=== PATIENT | male | born 1955 | race African-American/Black ===

== ENCOUNTER 2017-06-22 22:22 | Inpatient (IN) ==
[2017-06-22 23:41] LABS: ABG Base Excess -15.7 MMOL/L (-2.5-2.5); ABG HCO3 18.7 MMOL/L (20-26); ABG Oxygen Saturation 98.1 % (95-100); ABG PO2 191.7 MM HG (80-95); ABG TCO2 21.5 MMOL/L (23-27)
[2017-06-22] MEDS ORDERED: PROPOFOL 1,000 MG/100 ML BOTTLE IV ONE (23:42)
[2017-06-22 23:43] LABS: ABG PCO2 90.6 MM HG (35-48); ABG PH 6.932 (7.35-7.45)
[2017-06-22] MEDS ORDERED: ONDANSETRON 4 MG/2 ML VIAL IV STA (23:49)
[2017-06-22] MEDS ORDERED: ASPIRIN 325 MG TABLET PO STA (23:49)
[2017-06-22] MEDS ORDERED: PANTOPRAZOLE 40 MG VIAL IV STA (23:49)
[2017-06-23 00:18] LABS: PT Patient Result 10.7 SECS
[2017-06-23] MEDS ORDERED: VECURONIUM 10 MG VIAL IV ONE (00:26)
[2017-06-23 00:30] LABS: Lactic Acid 14.1 MMOL/L (0.4-2.0)
[2017-06-23 00:35] LABS: Ammonia 102 UMOL/L (11-32)
[2017-06-23 00:46] LABS: Basophils # 0.1 10*3/uL (0.0-0.2); Basophils % 0.3 % (0.0-0.8); Eosinophils # 0.1 10*3/uL (0.0-0.87); Eosinophils % 0.6 % (0.00-10.9); Hematocrit 49.2 VOL% (42.0-52.0); Hemoglobin 15.2 GM/DL (14.0-18.0); Immature Granulocytes % 0.8 %; Immature Granulocytes Absolute 0.12 #; Lymphocytes # 8.4 10*3/uL (1.4-4.0); Lymphocytes % 53.2 % (21.2-54.2); Mean Corpuscular HGB Conc 30.9 GM/DL (32-36); Mean Corpuscular Hemoglobin 32 PG (27-34); Mean Corpuscular Volume 103.1 FL (87-102); Mean Platelet Volume 10.7 FL (9.6-12.0); Monocytes # 0.9 10*3/uL (0.11-0.8); Monocytes % 5.6 % (1.7-12.7); Neutrophils # 6.3 10*3/uL (1.4-7.4); Neutrophils % 39.5 % (38.7-73.9); Platelet Count 258 T/CUMM (130-400); Red Blood Count 4.77 MC/CUMM (3.8-5.5); Red Cell Distribution Width 12.3 % (9.3-17.3); White Blood Count 15.8 T/CUMM (4-12)
[2017-06-23 00:52] LABS: Alanine Aminotransferase 64 U/L (16-61); Albumin 2.6 G/DL (3.4-5.0); Alkaline Phosphatase 64 U/L (45-117); Aspartate Amino Transferase 85 U/L (0-37); Bilirubin,Total < 0.39 MG/DL (0.2-1.0); Blood Urea Nitrogen 11 MG/DL (7-18); Glucose 303 MG/DL (74-106); Osmolality,Calculated 282.8 MOS/KG (273-304); Potassium 3.9 MMOL/L (3.5-5.1); Sodium 137 MMOL/L (136-145); Total Protein 6.4 G/DL (6.4-8.3)
[2017-06-23] MEDS ORDERED: ONDANSETRON 4 MG/2 ML VIAL ONE (01:03)
[2017-06-23] MEDS ORDERED: PANTOPRAZOLE 40 MG VIAL IV ONE (01:03)
[2017-06-23] MEDS: PROPOFOL 1,000 MG/100 ML BOTTLE IV SCH ×2 (03:00→18:13)
[2017-06-23 03:14] LABS: Burr Cells 2+; Giant Platelets Few; Platelet Estimate Normal
[2017-06-23] MEDS ORDERED: fentaNYL 100 MCG/2 ML VIAL IV PRN (03:29)
[2017-06-23] MEDS ORDERED: ALBUTEROL/IPRATROPIUM 3 ML NEB RESP TX PRN (03:29)
[2017-06-23] MEDS ORDERED: ONDANSETRON 4 MG/2 ML VIAL IV PRN (03:29)
[2017-06-23] MEDS: SODIUM CHLORIDE 0.9% 1,000 ML IV SCH ×3 (03:45→20:35)
[2017-06-23 03:47] LABS: ABG Base Excess -7.6 MMOL/L (-2.5-2.5); ABG HCO3 18.4 MMOL/L (20-26); ABG Oxygen Saturation 95.6 % (95-100); ABG TCO2 23.8 MMOL/L (23-27)
[2017-06-23 03:51] LABS: ABG PCO2 86.1 MM HG (35-48); ABG PH 7.108 (7.35-7.45)
[2017-06-23 04:13] LABS: Apearance,Urine CLOUDY (Clear); Bilirubin,Urine Negative (Negative); Blood, Urine Moderate mg/dL (Negative); Glucose,Urine (UA) 150 mg/dL (Negative); Ketones,Urine Negative (Negative); Nitrite,Urine Negative (Negative); Protein,Urine 100 MG/DL; RBC,Urine 23 /HPF (0-4); Sperm,Urine Moderate /HPF (Negative); Squamous Epithelial Cell,Urine Occasional /HPF (0-10); Urine Color Amber (Yellow); Urine Specific Gravity 1.013 (1.001-1.035); WBC,Urine 4 /HPF (0-6)
[2017-06-23 04:48] LABS: Albumin 2.3 G/DL (3.4-5.0); Bilirubin,Total 0.5 MG/DL (0.2-1.0); Calcium 6.9 MG/DL (8.5-10.1); Potassium 4.5 MMOL/L (3.5-5.1); Total Protein 5.7 G/DL (6.4-8.3)
[2017-06-23 05:27] LABS: Barbiturates Screen,Urine Negative (Negative); Benzodiazepines Screen,Urine Negative (Negative); Cannabinoid Screen,Urine Negative (Negative); Opiate Screen,Urine Negative (Negative); Phencyclidine Screen,Urine Negative (Negative)
[2017-06-23 05:45] LABS: ABG Base Excess -3.9 MMOL/L (-2.5-2.5); ABG HCO3 25.7 MMOL/L (20-26); ABG Oxygen Saturation 98.9 % (95-100); ABG PCO2 63.6 MM HG (35-48); ABG PH 7.224 (7.35-7.45); ABG PO2 196.8 MM HG (80-95); ABG TCO2 27.6 MMOL/L (23-27)
[2017-06-23] MEDS: PHENYLEPHRINE DRIP 40 MG/250 ML PREMIX IV SCH ×3 (06:08→19:23)
[2017-06-23 06:22] LABS: Risk Ratio 7.85; VLDL CHOLESTEROL 52.2 MG/DL
[2017-06-23] MEDS: ALBUTEROL/IPRATROPIUM 3 ML NEB RESP TX SCH ×3 (07:18→19:07)
[2017-06-23 08:01] LABS: Basophils % 0.3 % (0.0-0.8); Hematocrit 52.7 VOL% (42.0-52.0); Hemoglobin 17.7 GM/DL (14.0-18.0); Immature Granulocytes % 0.4 %; Immature Granulocytes Absolute 0.04 #; Lymphocytes # 0.9 10*3/uL (1.4-4.0); Lymphocytes % 7.6 % (21.2-54.2); Mean Corpuscular HGB Conc 33.6 GM/DL (32-36); Mean Corpuscular Hemoglobin 32 PG (27-34); Mean Platelet Volume 9.7 FL (9.6-12.0); Monocytes # 0.8 10*3/uL (0.11-0.8); Monocytes % 6.7 % (1.7-12.7); Neutrophils # 9.6 10*3/uL (1.4-7.4); Platelet Count 286 T/CUMM (130-400); Red Blood Count 5.49 MC/CUMM (3.8-5.5); Red Cell Distribution Width 12.7 % (9.3-17.3); White Blood Count 11.3 T/CUMM (4-12)
[2017-06-23] MEDS ORDERED: NOREPINEPHRINE 4 MG/4 ML VIAL IV ONE (08:11)
[2017-06-23 08:40] LABS: Albumin 2.5 G/DL (3.4-5.0); Bilirubin,Total 0.5 MG/DL (0.2-1.0); Osmolality,Calculated 276.8 MOS/KG (273-304); Total Protein 6.4 G/DL (6.4-8.3)
[2017-06-23 08:56] LABS: Potassium 6.5 MMOL/L (3.5-5.1)
[2017-06-23] MEDS: NOREPINEPHRINE 8 MG in SODIUM CHLORIDE 0.9% 234 ML IV SCH (09:00)
[2017-06-23] MEDS: THIAMINE 200 MG/2 ML VIAL IV SCH (09:00)
[2017-06-23 09:03] LABS: CKMB % 3.1 %
[2017-06-23] MEDS: PANTOPRAZOLE 40 MG VIAL IV SCH ×2 (09:05→21:28)
[2017-06-23 09:07] LABS: Troponin I Only 5.51 NG/ML (0.00-0.045)
[2017-06-23] MEDS: FOLIC ACID INJ 1 MG in SYRINGE 1 EACH IV SCH (09:18)
[2017-06-23] MEDS: MULTIVITAMIN LIQUID (CENTRUM) 60 ML BOTTLE PO SCH (09:19)
[2017-06-23] MEDS: CIPROFLOXACIN INJ 400 MG in PREMIX 1 EACH IV SCH ×3 (09:19→23:58)
[2017-06-23 10:13] LABS: ABG Base Excess -6.9 MMOL/L (-2.5-2.5); ABG Oxygen Saturation 99.6 % (95-100); ABG PCO2 42.1 MM HG (35-48); ABG PH 7.283 (7.35-7.45); ABG TCO2 16.6 MMOL/L (23-27)
[2017-06-23] MEDS ORDERED: METOPROLOL TARTRATE 5 MG/5 ML VIAL IV PRN (17:51)
[2017-06-23] MEDS ORDERED: AMIODARONE INJ 150 MG in DEXTROSE 5% 100 ML IV ONE (19:15)
[2017-06-23] MEDS ORDERED: AMIODARONE 150 MG/3 ML VIAL ONE ×2 (19:16→19:27)
[2017-06-23] MEDS ORDERED: AMIODARONE INJ 450 MG in DEXTROSE 5% 241 ML IV SCH (19:30)
[2017-06-23] MEDS ORDERED: VALPROIC ACID INJ 1,000 MG in SODIUM CHLORIDE 0.9% 100 ML IV ONE (19:43)
[2017-06-23] MEDS ORDERED: LORazepam 2 MG/1 ML VIAL IV PRN (19:45)
[2017-06-23] MEDS ORDERED: LORazepam 2 MG/1 ML VIAL ONE ×2 (19:46→19:48)
[2017-06-23] MEDS ORDERED: CALCIUM GLUCONATE 1,000 MG in SODIUM CHLORIDE 0.9% 100 ML IV ONE (20:11)
[2017-06-23] MEDS ORDERED: BUMETANIDE 1 MG/4 ML VIAL IV ONE (20:11)
[2017-06-23 20:19] LABS: Basophils # 0.1 10*3/uL (0.0-0.2); Basophils % 0.3 % (0.0-0.8); Hematocrit 48.5 VOL% (42.0-52.0); Hemoglobin 15.8 GM/DL (14.0-18.0); Immature Granulocytes % 0.5 %; Lymphocytes # 3.1 10*3/uL (1.4-4.0); Lymphocytes % 14.8 % (21.2-54.2); Mean Corpuscular HGB Conc 32.6 GM/DL (32-36); Mean Corpuscular Hemoglobin 31 PG (27-34); Mean Corpuscular Volume 96.4 FL (87-102); Mean Platelet Volume 9.7 FL (9.6-12.0); Monocytes # 1.7 10*3/uL (0.11-0.8); Monocytes % 7.9 % (1.7-12.7); Neutrophils # 16.2 10*3/uL (1.4-7.4); Neutrophils % 76.5 % (38.7-73.9); Platelet Count 260 T/CUMM (130-400); Red Blood Count 5.03 MC/CUMM (3.8-5.5); Red Cell Distribution Width 12.9 % (9.3-17.3); White Blood Count 21.2 T/CUMM (4-12)
[2017-06-23 21:02] LABS: Calcium 7.8 MG/DL (8.5-10.1); Osmolality,Calculated 292.1 MOS/KG (273-304)
[2017-06-23 21:05] LABS: Troponin I Only 7.39 NG/ML (0.00-0.045)
[2017-06-23 21:21] LABS: Band Neutrophils 14 % (0-10); Lymphocytes 7 % (20-55); Platelet Estimate Adequate; Polychromasia Slight; Segmented Neutrophils 67 % (50-85); Total Cells Counted 100
[2017-06-24] MEDS: ALBUTEROL/IPRATROPIUM 3 ML NEB RESP TX SCH ×4 (00:36→19:43)
[2017-06-24] MEDS: AMIODARONE INJ 450 MG in DEXTROSE 5% 241 ML IV SCH ×2 (03:13→18:36)
[2017-06-24 03:17] LABS: Basophils % 0.1 % (0.0-0.8); Hematocrit 46.6 VOL% (42.0-52.0); Hemoglobin 15.7 GM/DL (14.0-18.0); Immature Granulocytes % 0.4 %; Immature Granulocytes Absolute 0.06 #; Lymphocytes # 1.5 10*3/uL (1.4-4.0); Lymphocytes % 10.6 % (21.2-54.2); Mean Corpuscular HGB Conc 33.7 GM/DL (32-36); Mean Corpuscular Hemoglobin 32 PG (27-34); Mean Corpuscular Volume 93.8 FL (87-102); Mean Platelet Volume 9.6 FL (9.6-12.0); Neutrophils # 11.9 10*3/uL (1.4-7.4); Neutrophils % 81.9 % (38.7-73.9); Platelet Count 236 T/CUMM (130-400); Red Blood Count 4.97 MC/CUMM (3.8-5.5); White Blood Count 14.5 T/CUMM (4-12)
[2017-06-24 03:43] LABS: Ammonia < 10 UMOL/L (11-32)
[2017-06-24 03:46] LABS: Alanine Aminotransferase 75 U/L (16-61); Albumin 2.2 G/DL (3.4-5.0); Alkaline Phosphatase 66 U/L (45-117); Aspartate Amino Transferase 181 U/L (0-37); Blood Urea Nitrogen 32 MG/DL (7-18); Calcium 7.9 MG/DL (8.5-10.1); Glucose 156 MG/DL (74-106); Osmolality,Calculated 292.1 MOS/KG (273-304); Sodium 142 MMOL/L (136-145); Total Protein 5.7 G/DL (6.4-8.3)
[2017-06-24 03:50] LABS: Allen Test Positive; Pt O2 Delivery Device Ventilator
[2017-06-24 03:51] LABS: ABG HCO3 24.4 MMOL/L (20-26); ABG Oxygen Saturation 99.4 % (95-100); ABG PCO2 29.2 MM HG (35-48); ABG PH 7.485 (7.35-7.45); ABG TCO2 18.3 MMOL/L (23-27)
[2017-06-24 04:02] LABS: Band Neutrophils 23 % (0-10); Lymphocytes 11 % (20-55); Segmented Neutrophils 60 % (50-85); Total Cells Counted 100
[2017-06-24] MEDS: SODIUM CHLORIDE 0.9% 1,000 ML IV SCH ×3 (04:17→22:36)
[2017-06-24] MEDS: VALPROIC ACID INJ 500 MG in SODIUM CHLORIDE 0.9% 100 ML IV SCH ×3 (04:29→20:16)
[2017-06-24] MEDS: PROPOFOL 1,000 MG/100 ML BOTTLE IV SCH (04:31)
[2017-06-24] MEDS: CIPROFLOXACIN INJ 400 MG in PREMIX 1 EACH IV SCH ×3 (06:21→23:13)
[2017-06-24] MEDS: PHENYLEPHRINE DRIP 40 MG/250 ML PREMIX IV SCH (08:23)
[2017-06-24] MEDS: THIAMINE 200 MG/2 ML VIAL IV SCH (09:35)
[2017-06-24] MEDS: PANTOPRAZOLE 40 MG VIAL IV SCH ×2 (09:36→20:16)
[2017-06-24] MEDS: FOLIC ACID INJ 1 MG in SYRINGE 1 EACH IV SCH (09:39)
[2017-06-24] MEDS: MULTIVITAMIN LIQUID (CENTRUM) 60 ML BOTTLE PO SCH (09:40)
[2017-06-24] MEDS: NOREPINEPHRINE 8 MG in SODIUM CHLORIDE 0.9% 234 ML IV SCH (14:39)
[2017-06-25] MEDS: ALBUTEROL/IPRATROPIUM 3 ML NEB RESP TX SCH ×4 (00:27→19:07)
[2017-06-25] MEDS: PROPOFOL 1,000 MG/100 ML BOTTLE IV SCH (02:35)
[2017-06-25 03:51] LABS: Basophils % 0.4 % (0.0-0.8); Eosinophils % 0.3 % (0.00-10.9); Hemoglobin 13.3 GM/DL (14.0-18.0); Immature Granulocytes % 0.6 %; Immature Granulocytes Absolute 0.07 #; Lymphocytes % 8.7 % (21.2-54.2); Mean Corpuscular HGB Conc 32.4 GM/DL (32-36); Mean Corpuscular Hemoglobin 32 PG (27-34); Mean Corpuscular Volume 97.9 FL (87-102); Mean Platelet Volume 9.8 FL (9.6-12.0); Monocytes # 0.7 10*3/uL (0.11-0.8); Monocytes % 6.5 % (1.7-12.7); Neutrophils # 9.5 10*3/uL (1.4-7.4); Neutrophils % 83.5 % (38.7-73.9); Platelet Count 196 T/CUMM (130-400); Red Blood Count 4.19 MC/CUMM (3.8-5.5); Red Cell Distribution Width 13.6 % (9.3-17.3); White Blood Count 11.4 T/CUMM (4-12)
[2017-06-25 04:17] LABS: Allen Test Positive; Pt O2 Delivery Device Ventilator
[2017-06-25 04:18] LABS: ABG Base Excess -1.5 MMOL/L (-2.5-2.5); ABG HCO3 23.1 MMOL/L (20-26); ABG Oxygen Saturation 95.7 % (95-100); ABG PH 7.392 (7.35-7.45); ABG PO2 83.5 MM HG (80-95); ABG TCO2 20.1 MMOL/L (23-27)
[2017-06-25] MEDS: VALPROIC ACID INJ 500 MG in SODIUM CHLORIDE 0.9% 100 ML IV SCH ×3 (04:23→20:10)
[2017-06-25 04:29] LABS: Albumin 2.1 G/DL (3.4-5.0); Bilirubin,Total 0.5 MG/DL (0.2-1.0); Calcium 7.8 MG/DL (8.5-10.1); Potassium 4.2 MMOL/L (3.5-5.1); Total Protein 5.4 G/DL (6.4-8.3)
[2017-06-25] MEDS: PHENYLEPHRINE DRIP 40 MG/250 ML PREMIX IV SCH ×4 (04:30→23:24)
[2017-06-25 04:34] LABS: CKMB % 0.3 %
[2017-06-25 04:50] LABS: Troponin I Only 2.09 NG/ML (0.00-0.045)
[2017-06-25 05:43] LABS: Band Neutrophils 11 % (0-10); Lymphocytes 5 % (20-55); Segmented Neutrophils 77 % (50-85); Total Cells Counted 100
[2017-06-25] MEDS: CIPROFLOXACIN INJ 400 MG in PREMIX 1 EACH IV SCH ×3 (06:17→22:11)
[2017-06-25] MEDS: PANTOPRAZOLE 40 MG VIAL IV SCH ×2 (09:55→20:09)
[2017-06-25] MEDS: SODIUM CHLORIDE 0.9% 1,000 ML IV SCH ×2 (09:59→23:50)
[2017-06-25] MEDS: THIAMINE 200 MG/2 ML VIAL IV SCH (09:59)
[2017-06-25] MEDS: FOLIC ACID INJ 1 MG in SYRINGE 1 EACH IV SCH (10:01)
[2017-06-25] MEDS: MULTIVITAMIN LIQUID (CENTRUM) 60 ML BOTTLE PO SCH (10:02)
[2017-06-25] MEDS: AMIODARONE INJ 450 MG in DEXTROSE 5% 241 ML IV SCH (10:02)
[2017-06-25] MEDS ORDERED: NOREPINEPHRINE 4 MG/4 ML VIAL IV ONE ×2 (13:06→13:08)
[2017-06-25] MEDS: NOREPINEPHRINE 8 MG in SODIUM CHLORIDE 0.9% 234 ML IV SCH (13:14)
[2017-06-26] MEDS: AMIODARONE INJ 450 MG in DEXTROSE 5% 241 ML IV SCH (01:36)
[2017-06-26] MEDS: ALBUTEROL/IPRATROPIUM 3 ML NEB RESP TX SCH ×3 (01:49→12:24)
[2017-06-26] MEDS: PHENYLEPHRINE DRIP 40 MG/250 ML PREMIX IV SCH ×2 (02:21→07:05)
[2017-06-26] MEDS: PROPOFOL 1,000 MG/100 ML BOTTLE IV SCH (02:55)
[2017-06-26 03:25] LABS: Allen Test Positive; Pt O2 Delivery Device Ventilator
[2017-06-26 03:27] LABS: ABG HCO3 20.2 MMOL/L (20-26); ABG Oxygen Saturation 92.8 % (95-100); ABG PCO2 47.1 MM HG (35-48); ABG PO2 72.7 MM HG (80-95); ABG TCO2 19.6 MMOL/L (23-27)
[2017-06-26 04:27] LABS: Basophils # 0.1 10*3/uL (0.0-0.2); Basophils % 0.6 % (0.0-0.8); Eosinophils # 0.2 10*3/uL (0.0-0.87); Hematocrit 41.2 VOL% (42.0-52.0); Hemoglobin 12.8 GM/DL (14.0-18.0); Immature Granulocytes % 0.5 %; Immature Granulocytes Absolute 0.07 #; Mean Corpuscular HGB Conc 31.1 GM/DL (32-36); Mean Corpuscular Hemoglobin 31 PG (27-34); Mean Corpuscular Volume 100.7 FL (87-102); Mean Platelet Volume 10.2 FL (9.6-12.0); Monocytes % 6.5 % (1.7-12.7); Neutrophils # 12.3 10*3/uL (1.4-7.4); Neutrophils % 84.4 % (38.7-73.9); Platelet Count 146 T/CUMM (130-400); Red Blood Count 4.09 MC/CUMM (3.8-5.5); Red Cell Distribution Width 14.1 % (9.3-17.3); White Blood Count 14.5 T/CUMM (4-12)
[2017-06-26] MEDS: VALPROIC ACID INJ 500 MG in SODIUM CHLORIDE 0.9% 100 ML IV SCH ×2 (04:28→11:25)
[2017-06-26 05:06] LABS: Alanine Aminotransferase 47 U/L (16-61); Albumin 1.9 G/DL (3.4-5.0); Alkaline Phosphatase 58 U/L (45-117); Aspartate Amino Transferase 164 U/L (0-37); Blood Urea Nitrogen 40 MG/DL (7-18); Calcium 7.8 MG/DL (8.5-10.1); Glucose 73 MG/DL (74-106); Osmolality,Calculated 304.1 MOS/KG (273-304); Potassium 4.2 MMOL/L (3.5-5.1); Sodium 149 MMOL/L (136-145); Total Protein 5.4 G/DL (6.4-8.3)
[2017-06-26 05:23] LABS: Band Neutrophils 12 % (0-10); Eosinophils 1 % (0-10); Hypochromasia Slight; Lymphocytes 5 % (20-55); Platelet Estimate Normal; Segmented Neutrophils 74 % (50-85); Total Cells Counted 100
[2017-06-26 05:24] LABS: Burr Cells Slight; Giant Platelets Few; Ovalocytes Slight
[2017-06-26 05:34] LABS: Ammonia < 10 UMOL/L (11-32)
[2017-06-26] MEDS ORDERED: DEXTROSE 50% 25 GM/50 ML VIAL IV PRN (05:48)
[2017-06-26] MEDS ORDERED: DEXTROSE 50% 25 GM/50 ML VIAL IV ONE (05:50)
[2017-06-26] MEDS: CIPROFLOXACIN INJ 400 MG in PREMIX 1 EACH IV SCH (06:08)
[2017-06-26] MEDS: SODIUM CHLORIDE 0.9% 1,000 ML IV SCH (08:00)
[2017-06-26] MEDS: NOREPINEPHRINE 8 MG in SODIUM CHLORIDE 0.9% 234 ML IV SCH (09:13)
[2017-06-26] MEDS: PANTOPRAZOLE 40 MG VIAL IV SCH (10:07)
[2017-06-26] MEDS: MULTIVITAMIN LIQUID (CENTRUM) 60 ML BOTTLE PO SCH (10:07)
[2017-06-26] MEDS: THIAMINE 200 MG/2 ML VIAL IV SCH (10:07)
[2017-06-26] MEDS: PHENYLEPHRINE INJ 160 MG in SODIUM CHLORIDE 0.9% 234 ML IV SCH ×2 (10:32→17:04)
[2017-06-26] MEDS: FOLIC ACID INJ 1 MG in SYRINGE 1 EACH IV SCH (10:33)
[2017-06-26] MEDS ORDERED: MORPHINE 2 MG/1 ML SYRINGE IV PRN (18:08)
[2017-06-26 18:21] VITALS: BP 70/58
[2017-06-27] MEDS ORDERED: CIPROFLOXACIN INJ 400 MG in PREMIX 1 EACH IV SCH (07:00)
== END 2017-06-26 18:29 | disposition expired ==
LOC: EDSEX → EDUNIT# → EDBD → N.ED 22:22 → SUATTDRO 06-23 01:29 → N.EDINP 06-23 01:29 → N.ICU 06-23 02:38
PROVIDERS: ADMIT Internal Medicine; ATTEND Internal Medicine